=== PATIENT | male | born 1995 | race Caucasian/White ===

== ENCOUNTER 2018-08-08 15:23 | Emergency (ER) | payer OTHER ==
[2018-08-08 16:24] VITALS: RESP 16; TEMP 98.7
--- NOTE | 2018-08-08 17:19 | ED ---
General Adult HPI - General Chief complaint: ENT Stated complaint: Ear&Jaw Pain Time Seen by Provider: 08/08/18 16:53 Source: patient, RN notes reviewed Mode of arrival: ambulatory Limitations: no limitations - History of Present Illness Initial comments: 22-year-old male presents to the emergency department for a chief complaint of right ear pain x 2 days. Patient states his ear canal looked swollen. Patient states the pain is radiating into his jaw. States it is painful to open his jaw all the way. Denies any fevers or chills. Denies any recent viral illnesses or congestion.Patient has no other complaints at this time including shortness of breath, chest pain, abdominal pain, nausea or vomiting, headache, or visual changes. - Related Data Previous Rx's Medication Instructions Recorded Ofloxacin 0.3% Ophth Soln [Ocuflox 10 drops RIGHT EAR DAILY 7 Days ml 08/08/18 Ophth Soln] Allergies Allergy/AdvReac Type Severity Reaction Status Date / Time No Known Allergies Allergy Verified 08/08/18 16:23 Review of Systems ROS Statement: Those systems with pertinent positive or pertinent negative responses have been documented in the HPI. ROS Other: All systems not noted in ROS Statement are negative. Past Medical History Past Medical History: No Reported History History of Any Multi-Drug Resistant Organisms: None Reported Past Surgical History: No Surgical Hx Reported Past Psychological History: No Psychological Hx Reported Smoking Status: Never smoker Past Alcohol Use History: None Reported Past Drug Use History: None Reported General Exam Limitations: no limitations General appearance: alert, in no apparent distress Head exam: Present: atraumatic, normocephalic, normal inspection Eye exam: Present: normal appearance, PERRL, EOMI. Absent: scleral icterus, conjunctival injection, periorbital swelling ENT exam: Present: normal oropharynx (Nonerythematous, uvula midline), mucous membranes moist, TM's normal bilaterally (Nonerythematous, nonbulging bilaterally). Absent: normal external ear exam (Patient has edema noted of the right external auditory canal) Neck exam: Present: normal inspection, full ROM, lymphadenopathy (enlarged Infra-auricular lymph node noted below the right ear). Absent: tenderness, meningismus Respiratory exam: Present: normal lung sounds bilaterally. Absent: respiratory distress, wheezes, rales, rhonchi, stridor Cardiovascular Exam: Present: regular rate, normal rhythm, normal heart sounds. Absent: systolic murmur, diastolic murmur, rubs, gallop, clicks Neurological exam: Present: alert, oriented X3, CN II-XII intact Psychiatric exam: Present: normal affect, normal mood Course Vital Signs 08/08/18 16:21 Temperature 98.7 F Pulse Rate 85 Respiratory 16 Rate Blood Pressure 125/88 O2 Sat by Pulse 97 Oximetry Medical Decision Making - Medical Decision Making 22-year-old male presents for right ear pain 2 days. On exam patient does have edema noted of the right external auditory canal. Right membrane appears within normal limits, nonerythematous, nonopacified, not bulging. Patient is able to open his mouth without any difficulty. Likely otitis externa. Patient denies any swimming. He will be given ofloxacin drops. Will follow up with primary ca re in 1-2 days. Will return here for any worsening symptoms. Disposition Clinical Impression: Otitis externa Disposition: HOME SELF-CARE Condition: Good Instructions (If sedation given, give patient instructions): Otitis Externa (ED) Additional Instructions: Use antibiotics as directed. Take Motrin and Tylenol for pain. Please follow up with primary care in 1-2 days. Please return here for any worsening symptoms. Prescriptions: Ofloxacin 0.3% Ophth Soln [Ocuflox Ophth Soln] 10 drops RIGHT EAR DAILY 7 Days ml Is patient prescribed a controlled substance at d/c from ED?: No Referrals: Steve Ortez MD [Primary Care Provider] - 1-2 days Time of Disposition: 17:16
[2018-08-08 17:41] VITALS: BP 122/80; PULSE 82
== END 2018-08-08 17:40 | disposition home or self-care (01) ==
LOC: EC 15:23
DX: H60.91 Unspecified otitis externa, right ear (principal)
CPT/HCPCS: 99283

== ENCOUNTER 2019-10-03 02:52 | Emergency (ER) | payer OTHER ==
[2019-10-03 03:04] VITALS: RESP 18
[2019-10-03] MEDS ORDERED: SODIUM CHLORIDE 0.9% 1,000 ML IV STA (03:17)
[2019-10-03 03:50] LABS: Basophils # (A) 0.1 k/uL (0-0.2); Basophils % (A) 0 %; Eosinophils # (A) 0.3 k/uL (0-0.7); Eosinophils % (A) 1 %; HCT 48.6 % (39.0-53.0); HGB 16.3 gm/dL (13.0-17.5); Lymphocytes # (A) 1.5 k/uL (1.0-4.8); Lymphocytes % (A) 9 %; MCH 27.3 pg (25.0-35.0); MCHC 33.6 g/dL (31.0-37.0); MCV 81.4 fL (80.0-100.0); Mean Platelet Volume 8.1; Monocytes # (A) 0.5 k/uL (0-1.0); Monocytes % (A) 3 %; Neutrophils # (A) 15.3 k/uL (1.3-7.7); Neutrophils % (A) 87 %; Platelet Count 212 k/uL (150-450); RBC 5.97 m/uL (4.30-5.90); RDW 13.7 % (11.5-15.5); WBC 17.7 k/uL (3.8-10.6)
[2019-10-03 03:51] LABS: Appearance,Urine Clear (Clear); Bilirubin,Urine Negative (Negative); Blood,Urine Large (Negative); Color,Urine Yellow; Glucose,Urine (UA) Negative (Negative); Hyaline Casts,Urine 1 /lpf (0-2); Ketones,Urine 1+ (Negative); Leukocyte Esterase,Urine Negative (Negative); Mucus,Urine Few /hpf; Nitrite,Urine Negative (Negative); Protein,Urine 1+ (Negative); RBC,Urine >182 /hpf (0-5); Specific Gravity,Urine 1.024 (1.001-1.035); Urobilinogen,Urine <2.0 mg/dL (<2.0); WBC,Urine 2 /hpf (0-5)
[2019-10-03 04:02] LABS: ALT 58 U/L (4-49); AST 46 U/L (17-59); African American GFR (CKD) >90 (>60 ml/min/1.73 sqM); Albumin 5.2 g/dL (3.5-5.0); Alkaline Phosphatase 93 U/L (38-126); Anion Gap 11 mmol/L; Blood Urea Nitrogen 12 mg/dL (9-20); Calcium 9.7 mg/dL (8.4-10.2); Carbon Dioxide 25 mmol/L (22-30); Chloride 102 mmol/L (98-107); Glucose 117 mg/dL (74-99); Lipase 46 U/L (23-300); Non-African American GFR(CKD) >90 (>60 ml/min/1.73 sqM); Potassium 3.9 mmol/L (3.5-5.1); Sodium 138 mmol/L (137-145); Total Bilirubin 0.5 mg/dL (0.2-1.3); Total Protein 8.7 g/dL (6.3-8.2)
[2019-10-03 04:05] LABS: C Reactive Protein <5.0 mg/L (<10.0)
[2019-10-03] MEDS ORDERED: DICYCLOMINE 10 MG/ML 2 ML AMP IM STA (04:19)
--- NOTE | 2019-10-03 04:19 | ED ---
Abdominal Pain HPI - General Chief Complaint: Abdominal Pain Stated Complaint: Abdominal Pain Time Seen by Provider: 10/03/19 03:16 Source: patient, family Mode of arrival: ambulatory Limitations: no limitations - History of Present Illness Initial Comments: Previously healthy 23-year-old male presents the ER today for evaluation of nausea vomiting diarrhea that began approximately 4 hours prior to arrival. Patient reports that symptoms began after eating at [employer]. He reports that he had crampy abdominal pain with associated nausea and vomiting, pain was most prominent on the right side of the abdomen radiating to the back. He then developed diarrhea. Patient estimates that he said 78 episodes of nonbloody nonbilious emesis and a couple episodes of watery diarrhea. He does note that his urine is very dark thought it was because he is becoming dehydrated. Mom stated that he looked pale and seemed to be lightheaded when standing up she was concerned he was dehydrated secondary to bring the ER for evaluation. - Related Data Home Medications Medication Instructions Recorded Confirmed Acetaminophen Tab [Tylenol Tab] 1,000 mg PO Q6HR PRN 08/08/18 08/08/18 Previous Rx's Medication Instructions Recorded Ofloxacin 0.3% Ophth Soln [Ocuflox 10 drops RIGHT EAR DAILY 7 Days ml 08/08/18 Ophth Soln] Allergies Allergy/AdvReac Type Severity Reaction Status Date / Time No Known Allergies Allergy Verified 10/03/19 03:04 Review of Systems ROS Statement: Those systems with pertinent positive or pertinent negative responses have been documented in the HPI. ROS Other: All systems not noted in ROS Statement are negative. Past Medical History Past Medical History: No Reported History History of Any Multi-Drug Resistant Organisms: None Reported Past Surgical History: No Surgical Hx Reported Past Psychological History: No Psychological Hx Reported Smoking Status: Never smoker Past Alcohol Use History: None Reported Past Drug Use History: None Reported General Exam - General Exam Comments Initial Comments: Physical Exam GENERAL: Patient is well-developed and well-nourished. Patient is nontoxic and well-hydrated and is in no distress. HENT: Normocephalic, Atraumatic. EYES: PERRL, EOMI PULMONARY: Unlabored respirations. CARDIOVASCULAR: RRR Warm and well perfused extremities ABDOMEN: Non-distended SKIN: No rashes or bruising : Deferred NEUROLOGIC: Alert and oriented Normal speech Normal gait MUSCULOSKELETAL: Moving all extremities with no apparent injury PSYCHIATRIC: No SI/HI Limitations: no limitations Course Vital Signs 10/03/19 10/03/19 02:58 05:12 Temperature 98.2 F 97.8 F Pulse Rate 65 78 Respiratory 18 18 Rate Blood Pressure 133/92 118/77 O2 Sat by Pulse 97 97 Oximetry Medical Decision Making - Medical Decision Making The patient was seen and evaluated history is obtained from patient and his mother bedside Previously healthy 23-year-old male 4 hours of nausea vomiting diarrhea and right-sided flank pain Labs with leukocytosis likely reactive Urinalysis with gross hematuria CMP with mildly elevated PLT normal kidney function Labs are consistent with dehydration and hematuria. Discussed with the patient possibility of a kidney stone and sitter during the gross hematuria. Patient is completely flank pain free and resting comfortably at this time. Declines further imaging. Received IV fluids he remained asymptomatic while in the emergency department no nausea vomiting diarrhea, no flank pain or dysuria Agent comfortable with plan for discharge home at this time - Lab Data Result diagrams: 10/03/19 03:40 10/03/19 03:40 Lab Results 10/03/19 10/03/19 10/03/19 Range/Units 03:35 03:40 03:40 WBC 17.7 H (3.8-10.6) k/uL RBC 5.97 H (4.30-5.90) m/uL Hgb 16.3 (13.0-17.5) gm/dL Hct 48.6 (39.0-53.0) % MCV 81.4 (80.0-100.0) fL MCH 27.3 (25.0-35.0) pg MCHC 33.6 (31.0-37.0) g/dL RDW 13.7 (11.5-15.5) % Plt Count 212 (150-450) k/uL Neutrophils % 87 % Lymphocytes % 9 % Monocytes % 3 % Eosinophils % 1 % Basophils % 0 % Neutrophils # 15.3 H (1.3-7.7) k/uL Lymphocytes # 1.5 (1.0-4.8) k/uL Monocytes # 0.5 (0-1.0) k/uL Eosinophils # 0.3 (0-0.7) k/uL Basophils # 0.1 (0-0.2) k/uL Sodium 138 (137-145) mmol/L Potassium 3.9 (3.5-5.1) mmol/L Chloride 102 (98-107) mmol/L Carbon Dioxide 25 (22-30) mmol/L Anion Gap 11 mmol/L BUN 12 (9-20) mg/dL Creatinine 0.87 (0.66-1.25) mg/dL Est GFR (CKD-EPI)AfAm >90 (>60 ml/min/1.73 sqM) Est GFR (CKD-EPI)NonAf >90 (>60 ml/min/1.73 sqM) Glucose 117 H (74-99) mg/dL Calcium 9.7 (8.4-10.2) mg/dL Total Bilirubin 0.5 (0.2-1.3) mg/dL AST 46 (17-59) U/L ALT 58 H (4-49) U/L Alkaline Phosphatase 93 (38-126) U/L C-Reactive Protein <5.0 (<10.0) mg/L Total Protein 8.7 H (6.3-8.2) g/dL Albumin 5.2 H (3.5-5.0) g/dL Lipase 46 (23-300) U/L Urine Color Yellow Urine Appearance Clear (Clear) Urine pH 6.0 (5.0-8.0) Ur Specific [place] 1.024 (1.001-1.035) Urine Protein 1+ H (Negative) Urine Glucose (UA) Negative (Negative) Urine Ketones 1+ H (Negative) Urine Blood Large H (Negative) Urine Nitrite Negative (Negative) Urine Bilirubin Negative (Negative) Urine Urobilinogen <2.0 (<2.0) mg/dL Ur Leukocyte Esterase Negative (Negative) Urine RBC >182 H (0-5) /hpf Urine WBC 2 (0-5) /hpf Hyaline Casts 1 (0-2) /lpf Urine Mucus Few H (None) /hpf Disposition Clinical Impression: Nausea vomiting and diarrhea, Flank pain Disposition: HOME SELF-CARE Condition: Stable Instructions (If sedation given, give patient instructions): Renal Colic (ED) Is patient prescribed a controlled substance at d/c from ED?: No Referrals: Steve Ortez MD [Primary Care Provider] - 1-2 days
[2019-10-03 05:13] VITALS: BP 118/77; PULSE 78; TEMP 97.8
== END 2019-10-03 05:11 | disposition home or self-care (01) ==
LOC: EC 02:52
DX: R10.9 Unspecified abdominal pain (principal); R11.2 Nausea with vomiting, unspecified; R19.7 Diarrhea, unspecified; D72.829 Elevated white blood cell count, unspecified; R31.9 Hematuria, unspecified; R79.89 Other specified abnormal findings of blood chemistry
CPT/HCPCS: 36415; 80053; 83690; 85025; 86140; 81001; 99284; 96360; 96372; J0500

== ENCOUNTER 2021-06-06 01:33 | Emergency (ER) | payer OTHER ==
[2021-06-06 01:55] VITALS: TEMP 98.6
--- NOTE | 2021-06-06 02:40 | ED ---
Abdominal Pain HPI - General Chief Complaint: Abdominal Pain Stated Complaint: Abdominal Pain Time Seen by Provider: 06/06/21 02:40 Source: patient, RN notes reviewed, old records reviewed Mode of arrival: ambulatory - History of Present Illness Initial Comments: This is a 25-year-old male to the emergency department for evaluation severe onset of sudden right flank pain. Patient states he does have history of kidney stone in the past was in the ER today that time. Patient has not been feeling well since the pain started about 8 PM it was sudden onset pain. Mild nausea no vomiting states he has no other abdominal pain no fevers no chest pain no other complaints MD Complaint: abdominal pain, flank pain (Right-sided) -: hour(s) Location: diffuse, LLQ, epigastric Radiation: RLQ, suprapubic, R flank Migration to: suprapubic Severity: severe Severity scale (1-10): 8 Quality: cramping Consistency: constant Improves With: nothing Worsens With: eating Associated Symptoms: nausea Treatments Prior to Arrival: other (none) - Related Data Home Medications Medication Instructions Recorded Confirmed Acetaminophen Tab [Tylenol Tab] 1,000 mg PO Q6HR PRN 08/08/18 08/08/18 Previous Rx's Medication Instructions Recorded Ofloxacin 0.3% Ophth Soln [Ocuflox 10 drops RIGHT EAR DAILY 7 Days ml 08/08/18 Ophth Soln] Allergies Allergy/AdvReac Type Severity Reaction Status Date / Time No Known Allergies Allergy Verified 06/06/21 01:55 Review of Systems ROS Statement: Those systems with pertinent positive or pertinent negative responses have been documented in the HPI. ROS Other: All systems not noted in ROS Statement are negative. Past Medical History Past Medical History: Seizure Disorder History of Any Multi-Drug Resistant Organisms: None Reported Past Surgical History: No Surgical Hx Reported Past Psychological History: No Psychological Hx Reported Smoking Status: Never smoker Past Alcohol Use History: None Reported Past Drug Use History: None Reported General Exam General appearance: anxious Head exam: Present: atraumatic, normocephalic, normal inspection Eye exam: Present: normal appearance, PERRL, EOMI. Absent: scleral icterus, conjunctival injection, periorbital swelling ENT exam: Present: normal exam, mucous membranes moist Neck exam: Present: normal inspection. Absent: tenderness, meningismus, lymphadenopathy Respiratory exam: Present: normal lung sounds bilaterally. Absent: respiratory distress, wheezes, rales, rhonchi, stridor Cardiovascular Exam: Present: normal rhythm, tachycardia, normal heart sounds. Absent: systolic murmur, diastolic murmur, rubs, gallop, clicks GI/Abdominal exam: Present: soft, normal bowel sounds. Absent: distended, tenderness, guarding, rebound, rigid Extremities exam: Present: normal inspection, full ROM, normal capillary refill. Absent: tenderness, pedal edema, joint swelling, calf tenderness Back exam: Present: normal inspection Neurological exam: Present: alert, oriented X3, CN II-XII intact Psychiatric exam: Present: normal affect, normal mood Skin exam: Present: warm, dry, intact, normal color. Absent: rash Course Vital Signs 06/06/21 01:45 Temperature 98.6 F Pulse Rate 135 H Respiratory 20 Rate Blood Pressure 122/80 O2 Sat by Pulse 95 Oximetry - Reevaluation(s) Reevaluation #1: 06/06/21 04:46 Medical record is reviewed Reevaluation #2: 06/06/21 04:46 Patient currently has significant adequate pain control Reevaluation #3: 06/06/21 04:46 Patient informed results questions answered Medical Decision Making - Medical Decision Making 25 male to the ER today for evaluation regards to right-sided flank pain severe severe and sudden onset right-sided flank pain history of kidney stones positive kidney stone likely past. Patient has adequate pain control can be discharged home - Lab Data Result diagrams: 06/06/21 03:15 06/06/21 03:15 Lab Results 06/06/21 06/06/21 06/06/21 Range/Units 03:15 03:15 04:24 WBC 14.8 H (3.8-10.6) k/uL RBC 6.20 H (4.30-5.90) m/uL Hgb 16.9 (13.0-17.5) gm/dL Hct 50.9 (39.0-53.0) % MCV 82.1 (80.0-100.0) fL MCH 27.2 (25.0-35.0) pg MCHC 33.1 (31.0-37.0) g/dL RDW 13.5 (11.5-15.5) % Plt Count 203 (150-450) k/uL MPV 8.1 Neutrophils % 91 % Lymphocytes % 4 % Monocytes % 3 % Eosinophils % 1 % Basophils % 0 % Neutrophils # 13.4 H (1.3-7.7) k/uL Lymphocytes # 0.6 L (1.0-4.8) k/uL Monocytes # 0.5 (0-1.0) k/uL Eosinophils # 0.2 (0-0.7) k/uL Basophils # 0.0 (0-0.2) k/uL Sodium 140 (137-145) mmol/L Potassium 4.0 (3.5-5.1) mmol/L Chloride 105 (98-107) mmol/L Carbon Dioxide 22 (22-30) mmol/L Anion Gap 13 mmol/L BUN 15 (9-20) mg/dL Creatinine 0.96 (0.66-1.25) mg/dL Est GFR (CKD-EPI)AfAm >90 (>60 ml/min/1.73 sqM) Est GFR (CKD-EPI)NonAf >90 (>60 ml/min/1.73 sqM) Glucose 141 H (74-99) mg/dL Calcium 9.5 (8.4-10.2) mg/dL Total Bilirubin 0.8 (0.2-1.3) mg/dL AST 41 (17-59) U/L ALT 43 (4-49) U/L Alkaline Phosphatase 68 (38-126) U/L Total Protein 8.8 H (6.3-8.2) g/dL Albumin 5.0 (3.5-5.0) g/dL Amylase 103 (30-110) U/L Lipase 81 (23-300) U/L Urine Color Yellow Urine Appearance Clear (Clear) Urine pH 6.0 (5.0-8.0) Ur Specific [place] 1.028 (1.001-1.035) Urine Protein Trace H (Negative) Urine Glucose (UA) 1+ H (Negative) Urine Ketones Negative (Negative) Urine Blood Negative (Negative) Urine Nitrite Negative (Negative) Urine Bilirubin Negative (Negative) Urine Urobilinogen <2.0 (<2.0) mg/dL Ur Leukocyte Esterase Negative (Negative) - Radiology Data Radiology results: report reviewed (CT head and pelvis shows significantly no acute findings of kidney stone mainly some calcifications of the prostate or intestine), image reviewed Disposition Clinical Impression: Kidney stones Disposition: HOME SELF-CARE Condition: Good Instructions (If sedation given, give patient instructions): Kidney Stones (ED) Is patient prescribed a controlled substance at d/c from ED?: No Referrals: Steve Ortez MD [Primary Care Provider] - 1-2 days
[2021-06-06] MEDS ORDERED: SODIUM CHLORIDE 0.9% 500 ML 500 ML IV STA (02:41)
[2021-06-06] MEDS ORDERED: KETOROLAC 15 MG/ML 1 ML VIAL IVP STA (02:41)
[2021-06-06] MEDS ORDERED: SODIUM CHLORIDE 0.9% 1,000 ML IV STA ×2 (02:41)
[2021-06-06] MEDS ORDERED: MORPHINE SULFATE 4 MG/ML SYRINGE IV STA (02:41)
[2021-06-06] MEDS ORDERED: ONDANSETRON 4 MG/2 ML VIAL IVP STA (03:10)
[2021-06-06 03:22] LABS: Basophils % (A) 0 %; Eosinophils # (A) 0.2 k/uL (0-0.7); Eosinophils % (A) 1 %; HCT 50.9 % (39.0-53.0); HGB 16.9 gm/dL (13.0-17.5); Lymphocytes # (A) 0.6 k/uL (1.0-4.8); Lymphocytes % (A) 4 %; MCH 27.2 pg (25.0-35.0); MCHC 33.1 g/dL (31.0-37.0); MCV 82.1 fL (80.0-100.0); Mean Platelet Volume 8.1; Monocytes # (A) 0.5 k/uL (0-1.0); Monocytes % (A) 3 %; Neutrophils # (A) 13.4 k/uL (1.3-7.7); Neutrophils % (A) 91 %; Platelet Count 203 k/uL (150-450); RDW 13.5 % (11.5-15.5); WBC 14.8 k/uL (3.8-10.6)
[2021-06-06 03:32] LABS: ALT 43 U/L (4-49); AST 41 U/L (17-59); African American GFR (CKD) >90 (>60 ml/min/1.73 sqM); Alkaline Phosphatase 68 U/L (38-126); Amylase 103 U/L (30-110); Anion Gap 13 mmol/L; Blood Urea Nitrogen 15 mg/dL (9-20); Calcium 9.5 mg/dL (8.4-10.2); Carbon Dioxide 22 mmol/L (22-30); Chloride 105 mmol/L (98-107); Glucose 141 mg/dL (74-99); Lipase 81 U/L (23-300); Non-African American GFR(CKD) >90 (>60 ml/min/1.73 sqM); Sodium 140 mmol/L (137-145); Total Bilirubin 0.8 mg/dL (0.2-1.3); Total Protein 8.8 g/dL (6.3-8.2)
--- NOTE | 2021-06-06 03:46 | CT ---
EXAMINATION TYPE: CT abdomen pelvis wo con DATE OF EXAM: 06/06/2021 COMPARISON: None HISTORY: pain CT DLP: 462.2 mGycm Automated exposure control for dose reduction was used. Images obtained from the diaphragm to the floor the pelvis without contrast. Lung bases are clear. There is no pleural effusion. Heart size is normal. There is no pericardial eff usion. Liver spleen and stomach pancreas gallbladder appear normal. The bile ducts are not dilated. There is no adrenal mass. Kidneys show normal size and contour. There is no hydronephrosis. Ureters a re not dilated. There is no retroperitoneal adenopathy. Appendix is medial and appears normal. Bladde r distends smoothly. There is no inguinal hernia. There are multiple prostate calcifications. There is no free fluid in the pelvis. There is no mesenteric edema. There is no ascites or free air. There is no bowel obstruction. The lumbar vertebra have normal spacing and alignment. Posterior elements are intact. There is no com pression fracture. Bony pelvis intact. Sacrum and coccyx appear normal. IMPRESSION: Moderate prostatic calcifications in this relatively young patient and consistent with old inflammati on. Normal appendix. No acute abnormality in the abdomen pelvis.
[2021-06-06 04:31] LABS: Appearance,Urine Clear (Clear); Bilirubin,Urine Negative (Negative); Blood,Urine Negative (Negative); Color,Urine Yellow; Glucose,Urine (UA) 1+ (Negative); Ketones,Urine Negative (Negative); Leukocyte Esterase,Urine Negative (Negative); Nitrite,Urine Negative (Negative); Protein,Urine Trace (Negative); Specific Gravity,Urine 1.028 (1.001-1.035); Urobilinogen,Urine <2.0 mg/dL (<2.0)
[2021-06-06 05:30] VITALS: BP 124/77; PULSE 89; RESP 16
== END 2021-06-06 05:40 | disposition home or self-care (01) ==
LOC: EC 01:33
DX: N20.0 Calculus of kidney (principal)
CPT/HCPCS: 99284; 96374; 96375 ×2; 96361; 36415; 80053; 82150; 83690; 85025; 81003; 74176; J2270; J2405; J1885